=== PATIENT | female | born 1990 | race Caucasian/White ===

== ENCOUNTER 2016-07-15 10:19 | Emergency (ER) | payer OTHER ==
[2016-07-15] MEDS ORDERED: LORAZEPAM 0.5 MG TAB ONE (11:39)
[2016-07-15] MEDS ORDERED: ONDANSETRON ODT 4 MG TAB ONE (13:11)
== END 2016-07-15 13:19 | disposition home or self-care (01) ==
LOC: ER 10:19
DX: M67.431 Ganglion, right wrist (principal); F41.1 Generalized anxiety disorder; M62.830 Muscle spasm of back; F17.210 Nicotine dependence, cigarettes, uncomplicated